=== PATIENT | female | born 1980 | race Caucasian/White ===

== ENCOUNTER 2016-08-18 13:47 | Inpatient (IN) | payer OTHER ==
[~2016-08-18] VITALS: Ht 162.6 cm; Wt 60.5 kg
--- NOTE | ~2016-08-18 | TXPLANREV ---
"PATIENT: GERRI CONROY | | [facility] UNIT #: [id number] | [address] AGE/SEX: 36 F : 78 | [address] | [place] [address] ADMIT/REG DATE: 10/27/16 | ROOM: [facility] LOC: ADTC | ADTC | Treatment Plan/Staffing Review Date: 11/17/16 Treatment plan was reviewed and determined appropriate as written:yes Treatment plan was reviewed and the following changes/addition/deletions are necessary:none Discharge plans were reviewed and determined appropriate as previously documented: yes 11/24/16 Discharge plans were reviewed and determined to be as follows: 11/24/16, client will follow residential treatment with outpatient aftercare here and will continue with 3 AA/NA meetings and contact with a sponsor. Other pertinent issues discussed during this staffing review include: Client is doing good in this program and has been identifying areas she needs to work on and has been very willing to work on these things. She has been positive and seems serious about her recovery. Staff Present:Justa Melgar PRIMARY COUNSELOR: GABE Villar,L.A.DJanaC. Client Signature Counselor Signature Date Time "
--- NOTE | ~2016-08-18 | INDIVTXPL2 ---
"PATIENT: GERRI CONROY | | [facility] UNIT #: [id number] | [address] AGE/SEX: 36 F : 78 | [address] | [place] [address] ADMIT/REG DATE: 10/27/16 | ROOM: [facility] LOC: ADTC | ADTC | Individualized Treatment Plan DATE:11/03/16 Problem Statement/Issue Identified:My substance use has affected my family Goal: To learn how to have healthy family relationships Objectives/Activities to achieve goal: 1.I will attend family ed and group and share what I learned with my counselor. Due Date:11/01/16 Complete: Incomplete: 2.I will write feelings letters as assigned and share them for feedback. Due Date:11/11 Complete: Incomplete: 3. I will listen to lectures and share what I am learning with my counselor. Due Date:11/23/16 Complete: Incomplete: Client Signature Date Counselor Signaure: Date Outcome/Measurement of Progress Towards Goal: Counselor Signature: Date "
--- NOTE | ~2016-08-18 | INDIVTXPL2 ---
"PATIENT: GERRI CONROY | | [facility] UNIT #: [id number] | [address] AGE/SEX: 36 F : 78 | [address] | [place] [address] ADMIT/REG DATE: 10/27/16 | ROOM: [facility] LOC: ADTC | ADTC | Individualized Treatment Plan DATE:11/10/16 Problem Statement/Issue Identified: Client needs to get in touch with her feelings Goal:Client will learn how to get in touch with feelings and express herself. Objectives/Activities to achieve goal: 1.I will complete the womens journal and share with my counselor and in group. Due Date:11/10/16 Complete: Incomplete: 2. I will learn how to be ok with how I feel and not try to shut off the feelings and share my progress with my counselor. Due Date:11/24/16 Complete: Incomplete: Client Signature Date Counselor Signaure: Date Outcome/Measurement of Progress Towards Goal: Counselor Signature: Date "
--- NOTE | ~2016-08-18 | INDIVTXPL2 ---
"PATIENT: GERRI CONROY | | [facility] UNIT #: [id number] | [address] AGE/SEX: 36 F : 78 | [address] | [place] [address] ADMIT/REG DATE: 10/27/16 | [facility] | Individualized Treatment Plan DATE:11/03/16 Problem Statement/Issue Identified:My substance use has affected family, financial, and legal. Goal:I need to learn how to stay in recovery Objectives/Activities to achieve goal: 1.I will complete and share my getting started in group and share with my counselor. Due Date:11/04/16 Complete: Incomplete: 2.I will complete step one and share with my counselor. Due Date:11/10/16 Complete: Incomplete: 3. I will attend AA/NA and find a sponsor and share with my counselor. Due Date:11/10/16 Complete: Incomplete: Client Signature Date Counselor Signaure: Date Outcome/Measurement of Progress Towards Goal: Counselor Signature: Date "
--- NOTE | ~2016-08-18 | INDIVTXPL2 ---
"PATIENT: GERRI CONROY | | [facility] UNIT #: [id number] | [address] AGE/SEX: 36 F : 78 | [address] | [place] [address] ADMIT/REG DATE: 10/27/16 | [facility] | Individualized Treatment Plan DATE:11/07/16 Problem Statement/Issue Identified: Relapse is a problem some people in recovery experience Goal:I need to learn how to prevent relapse Objectives/Activities to achieve goal: 1.I will read women and relapse and share what I learned with my counselor. Due Date:11/09/16 Complete: Incomplete: 2.I will write down my relapse triggers and a plan and share with my counselor. Due Date:11/11/16 Complete: Incomplete: 3. I will read stinking thinking and share what I learned with my counselor Due Date:11/10/16 Complete: Incomplete: Client Signature Date Counselor Signaure: Date Outcome/Measurement of Progress Towards Goal: Counselor Signature: Date "
--- NOTE | ~2016-08-18 | INDIVTXPL2 ---
"PATIENT: GERRI CONROY | | [facility] UNIT #: [id number] | [address] AGE/SEX: 36 F : 78 | [address] | [place] [address] ADMIT/REG DATE: 10/27/16 | ROOM: [facility] LOC: ADTC | ADTC | Individualized Treatment Plan DATE:11/07/16 Problem Statement/Issue Identified: My addiction has prevented me from knowing who I am Goal:I will learn about myself and who I am Objectives/Activities to achieve goal: 1.I will work on the womens journal and share with my counselor. Due Date:11/24/16 Complete: Incomplete: 2.I will work on the Quiet moments packet and share with my counselor. Due Date:11/24/16 Complete: Incomplete: Client Signature Date Counselor Signaure: Date Outcome/Measurement of Progress Towards Goal: Counselor Signature: Date "
--- NOTE | ~2016-08-18 | TXPLANREV ---
"PATIENT: GERRI CONROY | | [facility] UNIT #: [id number] | [address] AGE/SEX: 36 F : 78 | [address] | [place] [address] ADMIT/REG DATE: 10/27/16 | [facility] | Treatment Plan/Staffing Review Date: 11/10/16 Treatment plan was reviewed and determined appropriate as written: will add new treatment plan. Treatment plan was reviewed and the following changes/addition/deletions are necessary: added a womens journal Discharge plans were reviewed and determined appropriate as previously documented:yes Discharge plans were reviewed and determined to be as follows: client will do her outpatient aftercare here at [place]. She will continue with AA and will have contact with a sponsor. 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 She has been working hard on her assignments and seems to be serious about recovery. Staff Present: Gwendolyn Paniagua PRIMARY COUNSELOR: GABE Villar,L.A.D.C. Client Signature Counselor Signature Date Time "
--- NOTE | ~2016-08-18 | INDIVTXPL2 ---
"PATIENT: GERRI CONROY | | [facility] UNIT #: [id number] | [address] AGE/SEX: 36 F : 78 | [address] | [place] [address] ADMIT/REG DATE: 10/27/16 | ROOM: [facility] LOC: ADTC | ADTC | Individualized Treatment Plan DATE:11/17/16 Problem Statement/Issue Identified: I at times struggle with being too controling Goal:I need to learn how to not be controling Objectives/Activities to achieve goal: 1.I will read letting go of the need to control and share what I learned with my counselor. Due Date:11/21/16 Complete: Incomplete: 2.I will share examples with my counselor of when I have been controling and see if I can identify some reasons I feel I need to control. Due Date:11/25/15 Complete: Incomplete: Client Signature Date Counselor Signaure: Date Outcome/Measurement of Progress Towards Goal: Counselor Signature: Date "
--- NOTE | ~2016-08-18 | CLPRLASSUM ---
"PATIENT: GERRI CONROY | | [facility] UNIT #: [id number] | [address] AGE/SEX: 36 F : 78 | [address] | [place] [address] ADMIT/REG DATE: 10/27/16 | ROOM: [facility] LOC: ADTC | ADTC | Client Problem List/Assessment Summary Date: 11/03/16 Problems identified by the client: My substance use has caused problems with legal,financial, and family Problems identified by significant others:no contact Client's Strengths: kind, loves family, wants recovery Problem List:Code: O Client needs to become familiar with basics of recovery as he/she is new to treatment and Twelve Step Program. Code: T Client is experiencing family &/or significant other discord and distancing as a result of past alcohol &/or drug usage. Code: O Client has learned to deny or stuff feelings; needs to learn to identify and process feelings with safe people to acquire the necessary skills to maintain group home sobriety. Code: T Client unresolved grief issues contributes to his/her continued drinking and using and needs to address these grief issues to avoid relapse. Code: T Client has unresolved guilt and shame issues and needs to work on forgiveness of self to avoid relapse. Code Boland: T: to be addressed during course of treatment O: problem noted, expected to resolve itself with abstinence--specific tx plan not required R: problem noted, will be referred upon discharge PRIMARY COUNSELOR: Leilani Dougherty"
--- NOTE | ~2016-08-18 | RESCARESUM ---
"PATIENT: GERRI CONROY | | [facility] UNIT #: [id number] | [address] AGE/SEX: 36 F : 78 | [address] | [place] [address] ADMIT/REG DATE: 10/27/16 | ROOM: [facility] LOC: ADTC | ADTC | Summary of Residential Care Primary Counselor: Gabe LECHUGA,[facility] Date of Admission: 10/27/16 Date of Discharge: 11/24/16 Referral Source: Maintenance Worker Primary Care Provider Prior to Admission:none Admitting Diagnosis: F10.20 alcohol use disorder severe Discharge Diagnosis: same Goals Achieved: Client completed the residential treatment program and assignments of: the getting started, step one, relapse prevention,letting go of the need to control,womens journal, stinking thinking, grief packet on her mothers by suicide,and quiet moments. 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 She got to work on her control issues while in this role. She attended family with her father and they shared feelings letters. She appears to be serious about her recovery and was able to look at the importants of not issolating and getting involved in the AA program. She made good connections while here in treatment. Continued Obstacles to Sobriety/Relapse Issues: not working a program, being around old drinking friends,lonliness, boredome, and not asking for help. family Issues Addressed: Clients father came to family and they read feelings letters. Client worked on grief issue over moms to suicide. y Individual Therapy y Group Therapy y Educational Series on Substance Abuse y Parents/Significant Others Attended Family Program n Acute Medical Problems During the Course of Treatment n Transferred to Hospital During the Course of Treatment y Accepting of Substance Abuse Problem n Non-accepting of Substance Abuse Problem n Required Psychological or Psychiatric Consultation During the Course of Treatment Completed AA Step #1 During This Level of Care Significant Incidences During Treatment:none Reason For Discharge: y Completed Residential TX Goals and Ready For Next Level of Care Left Tx Against Medical Advice/Treatment Goals Not Complete Completed Residential Tx Goals But Refusing Continuing Care Recommendations Discharged Due to Noncompliance/Treatment Goals not Completed PATIENT: GERRI CONROY | | [facility] UNIT #: [id number] | [address] AGE/SEX: 36 F : 78 | [address] | [place] [address] ADMIT/REG DATE: 10/27/16 | ROOM: [facility] LOC: ADTC | ADTC | Summary of Residential Care Discharged Earlier Than Planned Due to: Continuing Care Plan/Recommendations: Intensive Partial Care y Sponsor Partial Care y AA Meetings/NA Meetings y Outpatient Co-dependency Services [facility] Marriage Counseling Other Specific Continuing Care Plan: client will attend outpatient group with Kevin on Monday and continue to have individual sessions with primary counselor. She will be required to attend a minimum of 3 AA meetings a week and have contact with her sponsor. If client relapses will need to consider a sober living place. PRIMARY COUNSELOR: GABE Villar,L.A.D.C."
--- NOTE | 2016-10-27 14:15 | NUR ---
ADMISSION NOTE Client is a 36 y/o female, referred to treatment by a counselor. Client was brought here today by her father from her home in [place], where she lives alone. Client states NKMA and brings with her topical antibacterial cream and a vapoinhaler for home medications. Client states DOC is alcohol, last used 08/06/2016 when she drank 2 beers. CLient was searched, no contraband found. Rights/Responsibilities: Copy given and explained to client. Signed and accepted by client. Client oriented to physical lay out of the ADTC unit, given Big Book and admission packet. A Jose was assigned. Shanice
--- NOTE | 2016-10-27 14:37 | NUR ---
IS 1 hr/ Met with client for our first session. I was her counselor in [facility] but she did not do the aftercare. She said she feels different now and is ready to not drink and live differently. Her boys went to stay with their dad while she came here and he offered as she was not ready to ask. This was her 4th DUI so she is not sure what is going to happen but might do mcfp time. Gave her a step one along with her getting started due to the weekend coming and wanted her to have plenty to work on. next apt is 10/31 at 9 A.M.
--- NOTE | 2016-10-27 14:49 | NUR ---
family contact/ left a message with clients dad to talk about family.
--- NOTE | 2016-10-27 14:49 | NUR ---
trauma/ Clients mom I read in eval committed suicide when client was 17 so will see if she needs to work on this.
--- NOTE | 2016-10-27 22:08 | NUR ---
EDUCATION NOTE 1HR: Recovery committee presented information on recovery
--- NOTE | 2016-10-27 22:12 | NUR ---
EDUCATION NOTE 1HR: Clients watched Gadiel Esqueda video on Behavior
--- NOTE | 2016-10-27 22:40 | NUR ---
TECH NOTE: Client helped by doing crafts for the dance for REC, and attended AA meeting.
--- NOTE | 2016-10-28 04:41 | NUR ---
Bed note: client was in bed moitionless with eyes closed and no distress at all bed checks.
--- NOTE | 2016-10-28 12:57 | NUR ---
Group 1.5 Hr Ratio 1:11/Topics today were orientating a new member to group rules and goals and a couple getting started packets. Client was orientated to group rules and goals. She also shared how she could relat to what peers were sharing about issues and assignments.
--- NOTE | 2016-10-28 15:48 | NUR ---
PEER REVIEWS 1.25 HRS: Clt participated in peer reviews and took a risk to give open and honest feedback to those receiving a review.
--- NOTE | 2016-10-28 16:20 | NUR ---
Tech Note: Client watched video (The Enablers) and is working on Getting Started and Step 1.
--- NOTE | 2016-10-28 22:25 | NUR ---
Tech Note : Client worked crafts and projects for the dance. Client watched TV.
--- NOTE | 2016-10-29 04:39 | NUR ---
Bed note: Client was in bed with eyes closed and no distress at all bed checks.
--- NOTE | 2016-10-29 17:58 | NUR ---
Tech Note: Client attended N.A. Panel and is working on Step 1
--- NOTE | 2016-10-29 19:11 | NUR ---
tech note: client attended offsite Alumni Dance.
--- NOTE | 2016-10-30 04:55 | NUR ---
BED NOTE: Client was awake talking to roommate at first check, was in bed, motionless with eyes closed all other bed checks.
--- NOTE | 2016-10-30 17:03 | NUR ---
Tech Note: Client participated in Big Book Study in the morning and went for a walk in the afternoon. Client stated that she is working on Step One. Client attended latter-day.
--- NOTE | 2016-10-30 23:33 | NUR ---
tech note: Client attended AA Panel & participated in Community Clean. Client didn't come up to get her scheduled vitamins until after curfew-she was told it was to late by the tech. Client played cards. SE: AA Panel.
--- NOTE | 2016-10-31 04:26 | NUR ---
bed note: client was in bed with eyes closed and no distress at all bed checks.
--- NOTE | 2016-10-31 09:29 | NUR ---
IS 1 hr/ Client processed her getting started. She talked about her mom comitting suicide and admits she felt mad saying "she chose to leave us." She did relate when asked with having shame as her mother did as mom had stole money from the post office and was caught due to financial problems. Client is puzzled with why there was financial problems as they lived modestly and both parents worked. Client had tears as she shared. She will complete the grief packet. Feelings letters she will complete are to dad and kids. Client is seeing how one of her assets she has always been proud of as trusting others is one she needs to look at and know its possible to be too trusting. She has step one almost complete. next apt is 11/03 at 2pm.
--- NOTE | 2016-10-31 10:44 | NUR ---
Angel notes: Client is working on Grieft Pkt and mtg with princess
--- NOTE | 2016-10-31 12:00 | NUR ---
Peer Review 1.5 hr/ Clients all participated in giving peer review to 4 peers on what they need to work on.
--- NOTE | 2016-10-31 12:56 | NUR ---
Education note: Client attended educational mecca Davis on Marijuana.
--- NOTE | 2016-10-31 16:40 | NUR ---
Recovery 101 1 hr/ Clients discussed fundamental tools and what is important to work a strong recovery program such as: 12 steps, getting and using a sponsor, meetings/home group, read C.A.L., H.O.W./being honest, service work, HP concepts/spirituality, opening up, slogans, serenity prayer, etc. Also discussed the balance, recovery as way of life, 85% is the living problem and why people still go to meetings for their lifetime.
--- NOTE | 2016-10-31 23:48 | NUR ---
Tech Note: Client attended N.A.Meeting. Client also went on walk for rec. SE: Time in [facility]
--- NOTE | 2016-10-31 23:59 | NUR ---
Education Note: 1 hour lecture on communication given by counselor.
--- NOTE | 2016-11-01 04:13 | NUR ---
Bed Note: client was in bed with eyes closed and no distress at all bed checks.
--- NOTE | 2016-11-01 11:30 | NUR ---
GROUP 1.5 HRS. 1:10 Client participated in orienting new peer to purpose and rules of group. New peer shared feelings of fear and hopelessness which lead to group discussion on learning to deal with feelings approrpriately. Group read pg. 62 of ALCOHOLICS ANONYMOUS and addressed issues of self-centeredness and being driven by ..."fear, self-delusion, self-seeking and self-pity". Client shared feeling upset about issue with roommate but readily identified all that she has learned from the experience. She shared fear for roommate who left treatment today.
--- NOTE | 2016-11-01 17:07 | NUR ---
Relapse Prevention, 09/01, 1.0 hours, Client attended and actively participated in relapse prevention which focused on completing the quiz What Do You Know About Relapse?
--- NOTE | 2016-11-01 17:43 | NUR ---
ech Note: Client is working on Feelings Letters.
--- NOTE | 2016-11-01 23:22 | NUR ---
Tech Note: Client took walk around park for rec. Client attended A.A.Meeting. SE: Walk
--- NOTE | 2016-11-01 23:27 | NUR ---
Education Note: Client attended a one hour session with [facility] on HIV/AIDS/STD's for education.
--- NOTE | 2016-11-02 04:51 | NUR ---
Bed Note: client was in bed with eyes closed and no distress at all bed checks.
--- NOTE | 2016-11-02 10:33 | NUR ---
Tech notes: Client is working onn in relapse.
--- NOTE | 2016-11-02 12:53 | NUR ---
Group 1.5 Hr Ratio 1:9/Topics today were orientating two new clients to group rules and goals, feelings letters and a Getting Started Packet. Client shared her getting started packet and did a good job with it looking at things she can build od or change.
--- NOTE | 2016-11-02 15:34 | NUR ---
SPIRITUAL EDUCATION 1 hr. Today we oriented newcomers, discussed Starfish story then reached out to newcomers writing letters of encouragment and welcome, and using word art to make Big Book Bookmarks as welcoming gift.
--- NOTE | 2016-11-02 19:16 | NUR ---
Education: 1 Hour. Client attended Step 2 & Step 3 lecture given by staff.
--- NOTE | 2016-11-02 23:45 | NUR ---
Tech note : Client went for a walk around the park for rec and attended an onsite NA meeting. SE: first du
--- NOTE | 2016-11-03 05:17 | NUR ---
tech note: client was motionless in no distress at all bed checks.
--- NOTE | 2016-11-03 11:30 | NUR ---
AM GRP 1.5 HRS, Ratio 1:10/ Clt offered good feedback and was confrontive, in an appropriate manner when giving feedback to a male peer.
--- NOTE | 2016-11-03 14:09 | NUR ---
Tech Note: Client participated in Spiritual Enrichment in the morning and went for an outdoor walk in the afternoon. Client stated that she is working on reading the Big Book.
--- NOTE | 2016-11-03 14:19 | NUR ---
Education 1 Hour: Client heard a lecture and saw a demonstration on "Infection Prevention."
--- NOTE | 2016-11-03 16:15 | NUR ---
step Education/1 hr/ Focus was on step 8 "made a list of all persons we had harmed". Had them complete a set of questions on paper and then discussed. This client said she has some problems with sisters.
--- NOTE | 2016-11-03 23:22 | NUR ---
Tech note:client took walk for rec, participated in guided meditation and attended AA mtg. SE:AA meeting
--- NOTE | 2016-11-04 04:56 | NUR ---
Bed Note: Client was motionless with eyes closed at all bed checks except the first, she spoke to staff.
--- NOTE | 2016-11-04 12:01 | NUR ---
Group 1.5 Hr Ratio 1:12/Topics today were orientating a new member to group, a step one and what some peers are here for. Client shared how she could relate to what peers were sharing ahd complimented a per for opening up.
--- NOTE | 2016-11-04 12:40 | NUR ---
Peer Review 1.5 hr/ Clients all participated in giving peer review to 4 peers on what they need to work on.
--- NOTE | 2016-11-04 13:55 | NUR ---
Tech Note: Client watched Predator Pt.2 video and is working on Resentment and the Big Book.
--- NOTE | 2016-11-04 23:55 | NUR ---
TECH NOTE: Client participated in reading guidelines, attended optional offsite AA meeting, and watched tv/movies SE: woke up in great mood.
--- NOTE | 2016-11-05 04:10 | NUR ---
BED NOTE: Client was in bed, motionless, with eyes closed all bed checks.
--- NOTE | 2016-11-05 16:27 | NUR ---
Tech Note: Client attended an off-site AA meeting in the morning. Client stated that she is working on reading the Big Book and writing Feelings Letters.
--- NOTE | 2016-11-05 19:51 | NUR ---
TECH NOTE: Client played [employer] for REC, attended offsite AA meeting and watched tv/movies. SE: phone
--- NOTE | 2016-11-06 04:15 | NUR ---
Bed Note: Clt lay motionless in bed with eyes closed showing no distress at all bed checks.
--- NOTE | 2016-11-06 16:23 | NUR ---
Tech Note: Client read chapter 4 for Big Book study. Clt is working on the Big Book and had a visit.
--- NOTE | 2016-11-06 22:35 | NUR ---
Tech Note : Client listened to an AA panel member share his experience, strength and hope, watched tv and participated in community clean.
--- NOTE | 2016-11-07 04:53 | NUR ---
Bed Note: Clt lay motionless in bed with eyes closed showing no distress at last two bed checks. The first bed check clt looked at tech.
--- NOTE | 2016-11-07 09:03 | HP ---
ADMIT: 10/27/2016 RM/LOC: [facility] MR#: [id number] [id number] [id number] GERRI [address]Y [address] [place] [address] History and Physical SEX: F AGE: 36 : 1980 DATE OF SERVICE: CHIEF COMPLAINT: Alcohol dependency. HISTORY OF PRESENT ILLNESS: Gerri is a 36-year-old, , white female, admitted to residential level treatment at [facility] on October 27, 2016. She presents for treatment after 4th offense DUI with driving under suspension arrest in March 2016. She was referred to treatment after discussions with her attorney at law. She has previously had DUIs in 2002, 2009, and 2011 and had been through intensive outpatient treatment in 2011 and was sober for 6 months. Gerri's drug of choice on admission is alcohol. She first started drinking 15 years of age with friends on weekends. High school, she drank about 2 to 4 drinks occasionally up to 6 by her senior year on weekends. She continued to drink that way from 17 to around 19. In her 20s, she started drinking 2 to 4 drinks around 3 times a week and 1 night a week would have 6 to 12 beers to intoxication. In her 30s, she started drinking approximately 2 to 3 drinks 1 time a week when her kids were at home. Every other weekend when her ex- had custody of her kids, she would drink up to 8 to 12 beers and get acutely intoxicated. Over the last 13 years, she had 4 DUIs. She states since her last DUI in March 2016 she has only drank once. On New , she had 2 beers. She denies any history of alcohol withdrawal seizures, DTs, tremors, or hallucinations. Second drug of choice is denied. She denies using marijuana, meth, mushrooms, or other illicit drugs. PAST MEDICAL HISTORY: Includes 2 sections and a hysterectomy. ILLNESSES: None. MEDICATIONS: None. ALLERGIES: NONE KNOWN. SOCIAL HISTORY: Is that of a 36-year-old, , white female. She has 7 and 9-year-old boys that are currently with her ex-, and she has legal guardianship and gets a share custody on weekends. 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 She smokes 1 pack of cigarettes a day and lives in [place], [place]. FAMILY HISTORY: Includes colon and breast cancer in maternal grandmother. Additionally, she has an uncle and cousin with prior DUIs and another cousin, who was addicted to pain pills. ADMIT: 10/27/2016 RM/LOC: [facility] MR#: [id number] [id number] GERRI CONROY [address] [place] [address] History and Physical SEX: F AGE: 36 : 1980 REVIEW OF SYSTEMS: Negative. PHYSICAL EXAMINATION: VITAL SIGNS: She is 5 feet 4 inches with a weight of 60.5 kg, blood pressure 121/80 with a pulse of 70 and a temp of 96.7. GENERAL APPEARANCE: Is that of a 36-year-old, white female, who is alert, oriented, in no acute distress. Affect is appropriate HEENT: Pupils reactive. Extraocular muscle intact. TMs are normal. Throat unremarkable. NECK: Normal. Membranes are moist. HEART: Regular without murmur. LUNGS: Clear. ABDOMEN: Soft, nontender, benign. No obvious hepatosplenomegaly. BREASTS, GENITOURINARY, AND RECTAL: Deferred. EXTREMITIES: No clubbing, cyanosis, edema or tracks or splinter hemorrhages. NEUROLOGIC: Grossly normal light touch, strength, and DTRs. ASSESSMENT AND PLAN: Include: 1. Alcohol use disorder, severe. 2. Tobacco dependency. PLAN: Place her on a multivitamin and thiamine given her history of alcohol abuse. We will proceed with drug and alcohol abuse dependency treatment and counseling. Further evaluation and management based on her course during hospitalization. Please see her hospital record for the details. Roshan Maradiaga MD/ [facility] JOB #: [id number] CC: Gregorio Fox, Attending Physician NO FAMILY PHYSICIAN, Family Physician
--- NOTE | 2016-11-07 09:18 | NUR ---
IS 1 hr/Client went over notes she took on booklets-stinking thinking and women and relapse. She will read letting go of the need to control. Her dad will come to family. Client was on speaker phone when she called her aunt and her boys were there for a libertarian so they got to talk to her briefly. Client admits she had thought about suicide before coming in but had no plan. Several people were calling her and checking on her as they knew her mother had commited suicide so they worried. Client is not thinkning about it now and actually feels good about her recovery and the new support she has in here. She heard about womens meeting and will go to that once she is done with res. She has some [employer] numbers. She will work on feelings letters to dad and a vent letter to ex. next apt is with dad 11/10 at at 4:30 after family.
--- NOTE | 2016-11-07 10:25 | NUR ---
Angel notes: Client is working on Jornaling and mtg with princess
--- NOTE | 2016-11-07 13:35 | NUR ---
Educational Note: Client watched a video "Inhalent Abuse"
--- NOTE | 2016-11-07 16:00 | NUR ---
Recovery 101 1 hr/ Clients all brought Big Books and were given highlighters to use big book as a tool in recovery. Group discussion was on honesty, half- measures, selfishness, resentments, forgiveness, 12 promises, acceptance, using sponsor, and more.
--- NOTE | 2016-11-07 18:23 | NUR ---
EDUCATION NOTE: 1HR Lecture on Feelings given by counselor.
--- NOTE | 2016-11-07 23:03 | NUR ---
tech note: Client went for a walk for rec, attended NA meeting SE:
--- NOTE | 2016-11-08 04:43 | NUR ---
bed note:client was in bed with eyes closed and no distress at all bed checks.
--- NOTE | 2016-11-08 11:30 | NUR ---
GROUP 1.5 HRS. 1:9 Clients oriented new peer to purpose and rules of group. Discussion included peers HOW TO GET STARTED IN TREATMENT which included issues of moving, using to fit in, family issues and being away from kids. This client did a good job offering appropriate feedback.
--- NOTE | 2016-11-08 14:41 | NUR ---
Tech Note: Client participated in light stretching in the morning and went for an outdoor walk in the afternoon. Client stated that she is working on, "Quiet Moments" and "A Woman's Feelings Journal."
--- NOTE | 2016-11-08 19:01 | NUR ---
Education: 1 Hour. Staff gave lecture on Step 1.
--- NOTE | 2016-11-08 23:50 | NUR ---
tech note: client played Pictionary for recreation,attended Guided Meditation & onsite AA meeting. SE: 90 day coin.
--- NOTE | 2016-11-09 04:48 | NUR ---
tech note: Client was motionless in no distress at all bed checks.
--- NOTE | 2016-11-09 10:16 | NUR ---
Tech note: Client is working on Quiet Moments, Raoul Anthony
--- NOTE | 2016-11-09 13:03 | NUR ---
Group 1.5 hours 1:10 Clients orientated a new peer to group rules and purpose of group. Assignments were shared and clients gave feedback to peers. Client shared her feelings about her mother committing suicide. Student: Charbel Keating
--- NOTE | 2016-11-09 18:19 | NUR ---
SPIRITUAL EDUCATION 1 HR. ORIENTED NEWCOMERS, DISCUSSED ADDICTIVE SELF VS SPIRITUAL SELF THEN DEPICTED IN ARTWORK.
--- NOTE | 2016-11-09 18:25 | NUR ---
Education: 1 Hour. Client attended Relapse Prevention lecture given by staff.
--- NOTE | 2016-11-09 23:57 | NUR ---
Tech note: client played Catch Phrase for recreation & attended onsite NA meeting. Client tried to explain to male peer that it isn't appropriate to read from the bible during the client meeting-male peer was resistant to listen to what she was sharing. SE: NA.
--- NOTE | 2016-11-10 04:27 | NUR ---
Bed Note: Clt lay motionless in bed with eyes closed showing no distress at all bed checks.
--- NOTE | 2016-11-10 11:46 | NUR ---
Group 1.5 Ratio 1:12/Topics today were orientating a new group member to group rules and goals, a step one and a gs packet. Client shared how she could relate to what peers were sharing from assignments and issues.
--- NOTE | 2016-11-10 16:20 | NUR ---
Education 1 Hour: Client watched the video, "Feelings" by Father Mac.
--- NOTE | 2016-11-10 16:53 | NUR ---
FAMILY EDUCATION 3 hrs. Client was accompanied by her dad. They took part in the discussion on the disease concept and the progression and consequences.
--- NOTE | 2016-11-10 18:01 | NUR ---
Family session 1 hr/ Client and her father came for a session. Client brought up about some suicidal thoughts she had and her friends were worried. She had talked to her dad also and he said he was also worried. She was ashamed of all the consequences she had from drinking. She also talked about family gatherings and how most drink. She will make a plan such as be ready to leave early if she is bothered. She does not feel any are alcoholic. Talked to them about feelings letters and dad will return for family on monday.
--- NOTE | 2016-11-10 19:04 | NUR ---
Education 1HR: Clt watched video entitled "Say Yes To Life" by father Roberto Zunigaoth.
--- NOTE | 2016-11-10 23:05 | NUR ---
Tech Note: Clt played a game for recreation, attended GM and onsite AA mtg. SE was family grp
--- NOTE | 2016-11-11 04:46 | NUR ---
BED NOTE: Client waved at tech second and third check, was in bed, motionless with eyes closed first bed checks
--- NOTE | 2016-11-11 10:45 | NUR ---
Tech Note: Client is working on Feelings Letters.
--- NOTE | 2016-11-11 11:30 | NUR ---
GROUP 1.5 HRS 1:10 Group discussion included HOW TO GET STARTED IN TREATMENT assignment as well as issues of cravings and ambivalence. This client offered some personal feedback.
--- NOTE | 2016-11-11 13:34 | NUR ---
Late Note for 11/07/16 due to illness: Group 1.5 hr/ 22:2 Clients all participated in Sculpturing today by role-playing, giving feedback and relating. This client was attentive and all did discuss relapse can happen to anyone, and how to prevent it.
--- NOTE | 2016-11-11 13:54 | NUR ---
Late Note for 11/08/16 due to illness: Relapse Prevention, 09/01, 1.0 hours, Client attended and actively participated in relapse prevention educatio which focused on internal and external triggers.
--- NOTE | 2016-11-11 14:47 | NUR ---
Peer review 1 hr/Each person gave feedback to 4 clients using I see, I think, and I feel. This client participated with giving feedback.
--- NOTE | 2016-11-11 22:26 | NUR ---
Tech note : Client watched tv and participated in beaded project. She walked to an offsite AA meeting and talked on the phone.
--- NOTE | 2016-11-12 04:51 | NUR ---
Bed note: Client was in bed with eyes closed and no distress at all bed checks, except was awake at last bed check
--- NOTE | 2016-11-12 15:09 | NUR ---
Tech note: Client attended NA panel and is working on BB
--- NOTE | 2016-11-12 20:55 | NUR ---
Tech note: Client worked on beaded projects or watched basketball game for rec attended offsite AA meeting SE:NA panel
--- NOTE | 2016-11-13 05:17 | NUR ---
Bed note: client was in bed with eyes closed and no distress at all bed checks,
--- NOTE | 2016-11-13 15:37 | NUR ---
TECH NOTE: Client participated in big book study, attended nondenominational, and watched tv/movies. Had visitors
--- NOTE | 2016-11-13 19:07 | NUR ---
tech note:Attended AA panel, participated in community clean, watched tv and movies, attended optional [employer] meeting
--- NOTE | 2016-11-14 04:25 | NUR ---
tech note: Client was motionless in no distress at all bed checks.
--- NOTE | 2016-11-14 09:54 | NUR ---
Tech note: Client is working on Fl's
--- NOTE | 2016-11-14 13:03 | NUR ---
Education note: Client attended education speaker Jo on tobacco
--- NOTE | 2016-11-14 13:09 | NUR ---
Group 1.5 hr/ 10:1 Clients heard peers share letters and packet on criminal/ irresponsble behavior and how to change. Clients discussed negative self-talk, shame and how to cope with using thoughts plus it does get better if work the program. This client related and was attentive.
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
--- NOTE | 2016-11-14 20:32 | NUR ---
Education 1HR: Clt attended lecture given by counselor on Forgiveness.
--- NOTE | 2016-11-14 21:00 | NUR ---
FAMILY GROUP 5:1/ HR: Client, peers and attending family members heard several families process FEELINGS LETTERS. Much of the focus tonight was on the terror experienced by family members throughout the process of active addiction. Client and peers owned abusive behaviors that ran the gambit, i.e. verbal abuse, put-downs, bullying, manipulating, etc. Clients admitted that they isolated, ignored calls/texts sometimes defensively, sometimes from guilt and shame. This client attended alone but was attentive and sometimes tearful throughout. She did share guilt and ashamed feelings recognizing the hurt and pain she has caused the ones who love her the most. Client said it has always been hard for her to ask for help but realizing that those that kept calling her were reaching out because they love her.
--- NOTE | 2016-11-14 23:38 | NUR ---
Tech note: Client participated in family group this evening.
--- NOTE | 2016-11-15 04:15 | NUR ---
Bed Note: Clt lay motionless in bed with eyes closed showing no distress at all bed checks.
--- NOTE | 2016-11-15 11:30 | NUR ---
Group 1.5 hr/ 9:1 Clients all discussed spirituality, wanting recovery, cravings and how to stay in today helps. One peer shared how to focus on their values and when sober can be true to self but when using compromise all those values so can use this like a daily affirmation. This client was involved in relating and feedback. This client had great insight and pointed out to use the values that can achieve when sober as a positive affirmation in the mirror. Also confronted a peer on not owning powerlessness.
--- NOTE | 2016-11-15 15:22 | NUR ---
Tech Note: Client participated in light stretching for morning exercise and went on an outdoor walk in the afternoon. Client stated that she is working on, "Quiet Moments."
--- NOTE | 2016-11-15 16:17 | NUR ---
Relapse Prevention, 09/01, 1.0 hours, Client attended and actively participated in relapse prevention education which focused on early warnning signs of relapse.
--- NOTE | 2016-11-15 23:10 | NUR ---
Tech note : client participated in rec by decorating for Juan Josesylvester. Client went to the alumni meeting and attended an onsite AA meeting.
--- NOTE | 2016-11-16 05:19 | NUR ---
Bed note : Client was motionless with eyes closed at all bed checks.
--- NOTE | 2016-11-16 10:12 | NUR ---
Tech Notes: Client is working on Change Plan
--- NOTE | 2016-11-16 12:50 | NUR ---
Education note: Client attended education by [facility]
--- NOTE | 2016-11-16 14:08 | NUR ---
PEER REVIEW 22:1/1.5 HR: Client heard feedbck from peers for her Peer Review. She heard that she is "controlling, needs to feel that she is in control, is a "mother hen" and tries to take care of everybody else, isolates-needs to reach out to others to build a support system, doesn't take criticizm well, gets defensive, holds on to resentments, has a lot of fear and anger, doesn't forgive, is a 'llrkx-anc-haco' sort of person." Client heard peers express afraid, sad and glad feelings. Client said she owns the controlling behaviors and indicated that she is reading Letting Go of the Need to Control. Client said she has also done work on resentments she was carrying.
--- NOTE | 2016-11-16 17:20 | NUR ---
SPIRITUaL EDUCATION 1 HR. Today we oriented newcomers and the activity was reading and putting on presentations on portions of TOWARDS SPIRITUALITY.
--- NOTE | 2016-11-16 19:09 | NUR ---
med note: client complained of headache. pain level 5, motrin given
--- NOTE | 2016-11-16 22:27 | NUR ---
Tech note : Client went for a walk and worked on some crafts. Client celebrated a tech's birthday and attended an onsite NA meeting.
--- NOTE | 2016-11-16 22:27 | NUR ---
Tech note : Client went for a walk and worked on some crafts. Client celebrated a tech's birthday and attended an onsite NA meeting.
--- NOTE | 2016-11-16 22:28 | NUR ---
Tech note : Client went for a walk and worked on some crafts. Client celebrated a tech's birthday and attended an onsite NA meeting.
--- NOTE | 2016-11-16 22:42 | NUR ---
SPIRITUaL EDUCATION 1 HR. Today we oriented newcomers and the activity was reading and putting on presentations on portions of TOWARDS SPIRITUALITY.
--- NOTE | 2016-11-17 04:57 | NUR ---
Bed note: Client was moitionless with eyes closed at all bed checks.
--- NOTE | 2016-11-17 11:55 | NUR ---
Group 1.5 Hr Rtio 2:20/Topics today were orientating a new client to group rules and goals. Relapse prevention was also a topic. Client shared how she couuld relate to being afraid to come in for treatment and wondering hos she could make the changes she needs to make to remain sober.
--- NOTE | 2016-11-17 15:12 | NUR ---
Tech Note: Client attended Spiritual Enrichment in the morning and went for an outdoor walk in the afternoon. Client stated that she is working on, "Quiet Moments."
--- NOTE | 2016-11-17 15:52 | NUR ---
Education 1 Hour: Client heard from a recovery speaker who shared his experience, strength and hope.
--- NOTE | 2016-11-17 16:08 | NUR ---
IS 1 hr/ Client talked about her peer review and I asked her how she felt. She said she already knew much of it. She had asked for letting go of the need to control after this groiup but she has not had the time to read it yet. She talked about spirituality and the counselor gave them certain instructions for them in their group as they were divided but did not tell them what to do. 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 The leader did nothing and when it was their turn to share she felt dumb cause they were not prepared. I asked her if she feels she is a perfectionist and if this is why she felt dumb. She agreed with many areas she is. 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 She said after peer review she knows she needs to work on not being so controling. She will work on the control packet and My change plan. next apt is 11/22 at 2pm.
--- NOTE | 2016-11-17 16:15 | NUR ---
Step education/ Focus was on step 10 "continued to take personal inventory and when we were wrong promply admitted it." Gave them a set of questions to answer on paper and then as a group answered the first 3 and the rest each person shared what they had written. One of the questions was when was the last time I caught myself doing or saying something I did not feel good about? This client participated.
--- NOTE | 2016-11-17 18:47 | NUR ---
Education: 1 Hour. Clients watched Picking up the Pieces for education.
--- NOTE | 2016-11-17 18:48 | NUR ---
Education: 1 Hour. Clients watched Picking up the Pieces for education.
--- NOTE | 2016-11-17 23:27 | NUR ---
tech note: client went on walk for recreation,participated in Guided Meditation & attended onsite AA meeting. SE: counseling.
--- NOTE | 2016-11-18 04:08 | NUR ---
Bed note: Client was moitionless with eyes closed at all bed checks.
--- NOTE | 2016-11-18 12:37 | NUR ---
Group 1.5 Hr Ratio 1:11/Topics today were orientatinmg two new members to group rules and goals, feelings letters anddealing with childhood issues. Client shared how she could relate to how she needs to take care of her self and be there for her kids.
--- NOTE | 2016-11-18 13:00 | NUR ---
PEER REVIEWS 1 HR: Clt participated in peer review process and was able to give open and honest feedback to those receiving a review.
--- NOTE | 2016-11-18 13:33 | NUR ---
Tech Note: Client went on group walk for recreation. Clt is working on a Change Plan and Letting Go of the Need to Control.
--- NOTE | 2016-11-18 23:04 | NUR ---
TECH NOTE: Client participated in reading guidelines, watched tv/movies. attended optional off site AA meeting SE: group
--- NOTE | 2016-11-19 04:48 | NUR ---
BED NOTE: Client was in bed, motionless with eyes closed all three bed checks.
--- NOTE | 2016-11-19 16:33 | NUR ---
Tech Note: Client is working on the [employer] Book.
--- NOTE | 2016-11-19 23:40 | NUR ---
TECH NOTE: Client played Catch Phrase for REC, attended off site AA meeting, and watched TV/movies. SE: all day
--- NOTE | 2016-11-20 04:21 | NUR ---
Bed Note: Clt lay motionless in bed with eyes closed showing no distress at all bed checks.
--- NOTE | 2016-11-20 16:21 | NUR ---
Tech Note: Client participated in Big Book Study and stated that she is working on reading the Big Book. Client went on an optional outdoor walk and received visitors.
--- NOTE | 2016-11-20 22:46 | NUR ---
Client attended the A.A.Panel and participated in Community Clean. SE: Visit
--- NOTE | 2016-11-21 04:04 | NUR ---
BED NOTE: Client was in bed, and motionless at all three bed checks.
--- NOTE | 2016-11-21 10:06 | NUR ---
Tech notes: Client is working on Change Plan
--- NOTE | 2016-11-21 11:30 | NUR ---
AM Group 1.5 hr/ 21:2 Clients all read The Wall an allegory and discussed how it related to the 12 steps/recovery. Each client rainer and shared their wall.
--- NOTE | 2016-11-21 14:02 | NUR ---
Educational note: Client attended speaker for educationYoan
--- NOTE | 2016-11-21 16:00 | NUR ---
RECOVERY 101 1 HR/ Clients all filled out consequences list to look at each chemical they have ever used and how many consequences were experiences with each drug. Many shared what they learned from this and their top 3 consequences, they also discussed early stage symptoms of their addiction. Counselor asked the group what would be a definition that includes all stages and this was discussed as well at stages of Denial, Anger, Compliance/defiance, admittance, acceptance and Surrender.
--- NOTE | 2016-11-21 20:40 | NUR ---
Education: 1 Hour. Client attended lecture on "Adult Children of Alcoholics" presented by staff.
--- NOTE | 2016-11-21 23:14 | NUR ---
Tech Note: Client played a game for rec and attended the on unit N.A.Meeting. SE:_Speaker at 1300
--- NOTE | 2016-11-22 04:20 | NUR ---
Bed Note: Client was in bed, and motionless at all three bed checks.
--- NOTE | 2016-11-22 13:16 | NUR ---
Tech Note: Nutritional Services presented information for the 1:00 speaker meeting. Client is working on Step 2.
--- NOTE | 2016-11-22 13:17 | NUR ---
A.M. 1.5 hr res group/ratio 1:10/ Group heard a getting started, a feelings letter, vent letter and a womens journal assignment. This client did a nice job of confronting male peer who is not serious.
--- NOTE | 2016-11-22 15:05 | NUR ---
IS 1 hr/ Client went over what she has learned from "how to let go to the need to control" and continues to work on this. She will leave this week so we completed an aftercare plan and she identified relapse triggers. She feels a little nervous about leaving but she went over her plan. She will do aftercare here and continue to see me and be in Jan[facility] group. She will stay with her aunt for a few days here in town so she can make it to some meetings. She will have to see if she can get an interlock and if not she will look into moving to . She needs to find a job also. She will go to the Monday night womens meeting also. Gave her a madallion and told her she has grown a lot. She got teary eyed. She is looking forward to having a garden etc and feels good about life. Made an apt for next week 11/29/16.
--- NOTE | 2016-11-22 16:25 | NUR ---
Relapse Prevention, 09/02, 1.0 hours, Client attended and actively participated in relapse prevention education which focused on top 5 relapse triggers and how to avoid them.
--- NOTE | 2016-11-22 17:38 | NUR ---
Education Note: Topic was "[place] From Shame" presented by Ellen.
--- NOTE | 2016-11-22 22:51 | NUR ---
TECH NOTE: Client did crafts/beads for REC and attended on site AA meeting. SE: meeting with counselor
--- NOTE | 2016-11-23 04:02 | NUR ---
BED NOTE: Client was in bed, motionless with eyes closed all bed checks.
--- NOTE | 2016-11-23 10:45 | NUR ---
Tech notes: Client is working on Step 2
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
--- NOTE | 2016-11-23 16:01 | NUR ---
Education 1 Hour: Client watched the video, "Marijuana" by Gadiel Esqueda.
--- NOTE | 2016-11-23 19:07 | NUR ---
Education 1HR: Clt attended lecture given by counselor on boundaries.
--- NOTE | 2016-11-23 22:30 | NUR ---
Tech note : Client went for a long walk for rec and attended an onsite NA meeting. SE: Meeting with Joann
--- NOTE | 2016-11-24 04:06 | NUR ---
Bed note: Client was in bed motionless, with eyes closed at all bed checks.
--- NOTE | 2016-11-24 10:18 | NUR ---
DISCHARGE NOTE Client completed treatment and left the facility taking all personal belongings with her, including cornell from the safe and home medications stored at the pharmacy. Discharge instructions were reviewed and a signed copy provided to the client.
--- NOTE | 2017-01-19 08:09 | DS ---
ADMIT: 10/27/2016 RM/LOC: A.507 [facility] MR#: [id number] [facility] [address] [place] [id number] GERRI [address]Y [address] [place] [address] General Discharge Summary SEX: F AGE: 36 : 1980 ADMISSION DATE: 10/27/2016 DISCHARGE DATE: 11/24/2016 INDICATION FOR HOSPITALIZATION: Gerri is a 36-year-old, , white female, admitted to residential level treatment at [facility] on October 27, 2016 after 4th offense DUI. She had previously had numerous treatments. Her drug of choice on admission was alcohol. Please see her admission H and P for further details regarding her history of present illness, past medical history, physical exam, and assessment at time of hospitalization. HOSPITAL COURSE: On admission, Gerri was admitted to our residential level treatment [facility]. She was placed on multivitamin and thiamine given her history of alcohol abuse and dependency. During treatment, her primary counselor assigned was Leilani Dougherty. During treatment, she underwent individual and group therapy sessions on drug and alcohol abuse dependency. Relapse triggers were identified, and relapse prevention plan was outlined. Her father was involved during the family portion of her treatment program. They dealt additionally with her mother's as a result of suicide. She was overall accepting in her substance abuse problems. She completed step 1 of Alcoholics Anonymous. Reason for discharge was completion of residential level treatment goals. Aftercare recommendations include outpatient counseling, sponsor assignment with active AA and NA meeting involvement. LAB/X-RAY DATA: During hospitalization, none. DISCHARGE MEDICATIONS: Include: 1. Multivitamin 1 daily. 2. Thiamine 100 mg daily. FINAL DISCHARGE DIAGNOSES: Include: 1. Alcohol use disorder, severe. 2. Tobacco dependency. PROCEDURES: Include drug and alcohol abuse dependency treatment and counseling. Please see her hospital record for the details. Roshan Maradiaga MD/ humberto JOB #: [id number] CC: Gregorio Fox MD, Attending Physician FAMILY PHYSICIAN, Family Physician
== END 2016-11-24 10:20 | disposition home or self-care (01) | DRG 895 ==
LOC: ADTC 13:47
PROVIDERS: ADMIT Family Medicine
PROC: HZ34ZZZ Individual Counseling for Substance Abuse Treatment, Interpersonal (ICD-10-PCS; principal; 2016-10-27)
PROC: HZ43ZZZ Group Counseling for Substance Abuse Treatment, 12-Step (ICD-10-PCS; principal; 2016-10-27)
PROC: HZ63ZZZ Family Counseling for Substance Abuse Treatment (ICD-10-PCS; principal; 2016-10-27)
DX: F10.20 Alcohol dependence, uncomplicated (principal); F17.210 Nicotine dependence, cigarettes, uncomplicated; Z63.72 Alcoholism and drug addiction in family; Z65.3 Problems related to other legal circumstances